=== PATIENT | female | born 1985 | race Caucasian/White ===

== ENCOUNTER → 2017-05-22 | Outpatient (CLI) | payer OTHER ==
[~2017-05-22] MED LIST: FERROUS SULFAT325 M1 PO; IBUPROFEN400 MG PO; LEVAQUIN500 MG PO; LEVOTHYROXINE0.15 MG PO; PRENATAL PLUS1 TA1 PO; PROAIR HFA0.09 MG/AC IH; SYNTHROID0.175 MG PO
== END ==
LOC: LAB 10:27
DX: E03.9 Hypothyroidism, unspecified (principal)

== ENCOUNTER → 2017-07-09 | Outpatient (CLI) | payer OTHER | LOC: LAB 15:18 | DX: E03.9 Hypothyroidism, unspecified (principal) ==